=== PATIENT | female | born 1985 | race Caucasian/White ===

== ENCOUNTER 2016-11-07 16:07 | Outpatient (CLI) | payer OTHER, MEDICAID | END 2016-11-07 16:08 | disposition home or self-care (01) | LOC: BABIESSH 16:07 | PROVIDERS: ATTEND Family Medicine | DX: Z39.1 Encounter for care and examination of lactating mother (principal) ==

== ENCOUNTER 2016-11-26 09:53 | Outpatient (CLI) | payer OTHER, MEDICAID | END 2016-11-26 09:54 | disposition home or self-care (01) | LOC: BABIESSH 09:53 | PROVIDERS: ATTEND Family Medicine | DX: Z39.1 Encounter for care and examination of lactating mother (principal) ==